=== PATIENT | male | born 1955 | race Caucasian/White ===

== ENCOUNTER 2022-04-14 07:45 | Emergency (ER) | payer MEDICARE, OTHER ==
[2022-04-14] VITALS (7 sets, daily range): BP systolic 116–148; BP diastolic 78–92
[~2022-04-14] VITALS: Ht 175.3 cm; Wt 51.3 kg
[2022-04-14] MEDS ORDERED: CEPHALEXIN500 M1 PO ×2 (08:37→09:29)
[2022-04-14] MEDS ORDERED: TOPROL XL25 M1 PO (09:25)
[2022-04-14] MEDS ORDERED: PROTONIX40 M2 PO (09:25)
[2022-04-14] MEDS ORDERED: NORVASC5 M1 PO (09:26)
[2022-04-14] MEDS ORDERED: XANAX1 MG PO (09:26)
[2022-04-14] MEDS ORDERED: PROAIR HFA108 MCG/AC IN (09:27)
[2022-04-14] MEDS ORDERED: ISOSORB MONO30 MG PO (09:27)
[2022-04-14] MEDS ORDERED: IPRATROPIU0.5 MG/3 M IN (09:27)
[2022-04-14] MEDS ORDERED: SYMBICORT1 AE1 IN (09:28)
[2022-04-14] MEDS ORDERED: AMOX/K CLAV875 M1 PO (10:18)
[2022-04-14] MEDS ORDERED: MUPIROCIN21 TOP (10:18)
[2022-04-14] MEDS ORDERED: TRAMADOL HYDROC50 M1 PO (10:18)
== END 2022-04-14 11:00 | disposition home or self-care (01) ==
LOC: ED 07:45
PROC: 0HQ1XZZ Repair Face Skin, External Approach (ICD-10-PCS; principal; 2022-04-14)
DX: S01.21XA Laceration without foreign body of nose, initial encounter (principal); S02.2XXA Fracture of nasal bones, initial encounter for closed fracture; M54.9 Dorsalgia, unspecified; W01.0XXA Fall on same level from slipping, tripping and stumbling without subsequent striking against object, initial encounter; Y92.002 Bathroom of unspecified non-institutional (private) residence as the place of occurrence of the external cause; I10 Essential (primary) hypertension

== ENCOUNTER 2022-08-28 13:26 | Emergency (ER) | payer MEDICARE, OTHER ==
[~2022-08-28] VITALS: Ht 175.3 cm; Wt 51.0 kg
[2022-08-28] VITALS (33 sets, daily range): BP systolic 105–154; BP diastolic 73–131
[~2022-08-28 13:26] MED LIST: AMOX/K CLAV875 M1 PO; CEPHALEXIN500 M1 PO; IPRATROPIU0.5 MG/3 M IN; ISOSORB MONO30 MG PO; MUPIROCIN21 TOP; NORVASC5 M1 PO; PROAIR HFA108 MCG/AC IN; PROTONIX40 M2 PO; SYMBICORT1 AE1 IN; TOPROL XL25 M1 PO; TRAMADOL HYDROC50 M1 PO; XANAX1 MG PO
[2022-08-28] MEDS ORDERED: POTASSIUM GLUC550 MG PO (14:04)
[2022-08-28] MEDS ORDERED: SEROQUEL25 MG PO (14:04)
[2022-08-28 14:37] LABS: HEMATOCRIT 28.9 % (39.0-50.0); HEMOGLOBIN 8.8 g/dl (14.0-18.0); IMMATURE GRANULOCYTES 0.1 % (0.0-5.0); MEAN CELL VOLUME 94.1 fL CALC (80.0-100.0); MEAN CORPUSCULAR HGB 28.7 pG CALC (26.0-32.0); MEAN CORPUSCULAR HGB CONC 30.4 g/dL CAL (32.0-36.0); NEUT# 15.68 thou/uL (1.82-7.42); RED BLOOD COUNT 3.07 mill/uL (4.70-6.10); RED CELL DISTRI WIDTH 14.6 % (11.5-15.5)
[2022-08-28 14:39] LABS: URINE BILIRUBIN - DIPSTICK NEGATIVE (NEGATIVE); URINE BLOOD DIPSTICK SMALL (NEGATIVE); URINE COLOR YELLOW; URINE GLUCOSE - DIPSTICK NEGATIVE (NEGATIVE); URINE KETONE NEGATIVE (NEGATIVE); URINE LEUK ESTERASE NEGATIVE (NEGATIVE); URINE PROTEIN - DIPSTICK 100 mg/dL (NEG-TRACE); URINE UROBILINOGEN - DIPSTICK 0.2 E.U./dL (0.2)
[2022-08-28 14:42] LABS: ALBUMIN 3.1 g/dL (3.2-5.0); ALKALINE PHOSPHATASE 116 u/l (38-126); ANION GAP 13 (6-22 (CALC)); BILIRUBIN, TOTAL 0.3 mg/dL (0.0-1.4); BUN 15 mg/dL (8-23); BUN/CREATININE RATIO 12 (12-20 (CALC)); CARBON DIOXIDE 29 mmol/l (22-30); CHLORIDE 100 mmol/l (95-108); CREATININE 1.2 mg/dL (0.7-1.3); GFR FOR AFR.AMER. > 60 ML/MIN (>=60 (CALC)); GFR OTHER RACES 60 ML/MIN (>=60 (CALC)); LIPASE 68 u/l (23-300); POTASSIUM 3.8 mmol/l (3.5-5.1); SGOT/AST 18 u/l (19-48); SODIUM 138 mmol/l (137-146); TOTAL PROTEIN 5.5 g/dL (6.3-8.2)
[2022-08-28 14:42] LABS: URINE NITRITE - DIPSTICK NEGATIVE (Negative)
[2022-08-28 14:45] LABS: URINE MUCUS FEW hpf (NONE-FEW); URINE WBC 0-2 WBC/hpf (0-5)
== END 2022-08-28 23:09 | disposition short-term general hospital (02) ==
LOC: ED 13:26 → ED-I 16:48 → ED 23:09
PROVIDERS: Nurse Practitioner
PROC: 0T9B70Z Drainage of Bladder with Drainage Device, Via Natural or Artificial Opening (ICD-10-PCS; principal; 2022-08-28)
DX: C78.7 Secondary malignant neoplasm of liver and intrahepatic bile duct (principal); D72.829 Elevated white blood cell count, unspecified; R33.9 Retention of urine, unspecified; K92.1 Melena; C80.1 Malignant (primary) neoplasm, unspecified; N13.2 Hydronephrosis with renal and ureteral calculous obstruction; I10 Essential (primary) hypertension; Z87.442 Personal history of urinary calculi; Z85.038 Personal history of other malignant neoplasm of large intestine
CPT/HCPCS: Q9967